=== PATIENT | female | born 1980 ===

== ENCOUNTER 2018-09-21 02:09 | Outpatient (CLI) | payer SELFPAY ==
[2018-09-21 08:38] LABS: HEMOGLOBIN A1C 5.3 % (4.5-6.2)
[2018-09-21 08:54] LABS: CHOL/HDL RATIO 2.4 (0.00-4.99)
== END 2018-09-21 23:59 | disposition home or self-care (01) ==
LOC: HW HEART 02:09
DX: Z13.6 Encounter for screening for cardiovascular disorders (principal)
CPT/HCPCS: 36415